=== PATIENT | female | born 1930 | race Caucasian/White ===

== ENCOUNTER 2019-09-01 13:32 | Inpatient (IN) | payer MEDICARE, OTHER ==
[~2019-09-01] VITALS: Ht 165.1 cm; Wt 73.5 kg
--- NOTE | 2019-09-01 13:44 | NUR ---
christen. report receieved from [facility]. pt c/o flu like symptoms x 6 days. sob started today. pt's aox4. resps even and unlabored. sinus tachy rate 110's on doctor of medicine at this time. all monitors in place. call light within reach. denies n/v/d.
--- NOTE | 2019-09-01 14:05 | NUR ---
edmd at bedside to evaluate at this time.
[2019-09-01] MEDS ORDERED: methylPREDNISolone SOD SUCC 125 MG/2 ML ONE (14:27)
[2019-09-01] MEDS ORDERED: SODIUM CHLORIDE 0.9% 1,000ML IVBOLUS ONE ×3 (14:30→17:00)
[2019-09-01] MEDS ORDERED: ALBUTEROL SULFATE 2.5 MG/3 ML NPPB ONE (14:30)
--- NOTE | 2019-09-01 14:31 | NUR ---
pt states " i can't pee now." pt awares of ua.
--- NOTE | 2019-09-01 14:34 | NUR ---
pt medicated per emar. pt tolerated well. ns infusing at this time.
[2019-09-01] MEDS ORDERED: ALBUTEROL SULFATE 2.5 MG/3 ML ONE (14:39)
[2019-09-01] MEDS ORDERED: HYDR12.517 PO (14:42)
[2019-09-01] MEDS ORDERED: LOVA10TA PO (14:43)
[2019-09-01] MEDS ORDERED: LISI-170 PO (14:43)
--- NOTE | 2019-09-01 14:47 | NUR ---
rt at bedside at this time.
[2019-09-01 14:56] LABS: RAPID INFLUENZA A Negative (Negative); RAPID INFLUENZA B Negative (Negative)
[2019-09-01 14:59] LABS: BASOPHILS # (AUTO) 0.04 x10^3/uL (0-0.1); BASOPHILS % (AUTO) 0 % (0-1); EOSINOPHILS % (AUTO) 0 % (1-7); LYMPHOCYTES # (AUTO) 1.71 x10^3/uL (1-3.4); LYMPHOCYTES % (AUTO) 14 % (22-44); MD NO; MEAN CORPUSCULAR HEMOGLOBIN 33.6 pg (27.0-34.8); MEAN CORPUSCULAR HGB CONC 32.9 g/dL (32.4-35.8); MEAN CORPUSCULAR VOLUME 102.2 fL (80-100); MEAN PLATELET VOLUME 10.2 fL (7.4-10.4); MONOCYTES # (AUTO) 1.12 x10^3/uL (0.2-0.8); MONOCYTES % (AUTO) 9 % (2-9); NEUTROPHILS # (AUTO) 9.19 x10^3/uL (1.8-6.8); NEUTROPHILS % (AUTO) 76 % (42-75); PLATELET COUNT 178 x10^3/uL (130-400); RED BLOOD COUNT 5.08 x10^6/uL (3.82-5.3); RED CELL DISTRIBUTION WIDTH 14.1 % (9.6-15.2)
[2019-09-01] MEDS ORDERED: methylPREDNISolone SOD SUCC 125 MG/2 ML IV ONE (15:00)
[2019-09-01 15:10] LABS: ALBUMIN 2.7 g/dL (3.4-5.0); ANION GAP 8 mmol/L (5-15); CALCIUM 8.7 mg/dL (8.5-10.1); CHLORIDE 99 mmol/L (98-107)
--- NOTE | 2019-09-01 15:25 | NUR ---
bedside comode at bedside at this time. pt states "i'm gonna try now."
[2019-09-01] MEDS ORDERED: SODIUM CHLORIDE FLUSH 10ML SYR IVF ONE (15:30)
--- NOTE | 2019-09-01 15:43 | NUR ---
ua sent at this time.
--- NOTE | 2019-09-01 15:43 | NUR ---
BEDSIDE REPORT FROM MARISSA AVERY, PT MOVED TO T3. AWAITING BED ASSIGNMENT. 2ND LITER IVF STARTED. BC DRAWN
--- NOTE | 2019-09-01 15:44 | NUR ---
report given to santo anthony.
[2019-09-01] MEDS ORDERED: MAGNESIUM SULFATE PMX 2GM/50ML 50 ML ONE (16:16)
[2019-09-01 16:17] LABS: MICROSCOPIC INDICATED
[2019-09-01 16:22] LABS: CULTURE INDICATED? YES
[2019-09-01] MEDS ORDERED: MAGNESIUM SULFATE PMX 2GM/50ML 50 ML IVPB ONE (16:30)
[2019-09-01] MEDS ORDERED: CEFTRIAXONE PMX 1GM/50ML 50 ML ONE (16:58)
[2019-09-01] MEDS: CEFTRIAXONE PMX 1GM/50ML 50 ML IV SCH (16:59)
[2019-09-01] MEDS ORDERED: CEFTRIAXONE PMX 1GM/50ML 50 ML IVPB ONE (17:00)
[2019-09-01] MEDS ORDERED: ONDANSETRON ODT 4 MG PO PRN (17:00)
[2019-09-01] MEDS ORDERED: ACETAMINOPHEN 325 MG TABLET PO PRN (17:00)
[2019-09-01] MEDS ORDERED: ONDANSETRON 2MG/ML, 2ML IVPush PRN (17:00)
[2019-09-01] MEDS ORDERED: SODIUM CHLORIDE 0.9% 1,000 ML IV ONE (17:00)
--- NOTE | 2019-09-01 17:12 | NUR ---
Report to GENA Ferrera, pt moved to ED room 23 from tr03 via erich bermudez in bed, NAD, no needs at this time, call light in reach, family member at bedside.
--- NOTE | 2019-09-01 17:12 | NUR ---
Report recieved. pt transfered via [facility].
--- NOTE | 2019-09-01 17:31 | NUR ---
Requested diet tray for pt. Water provided.
[2019-09-01] MEDS ORDERED: SODIUM CHLORIDE FLUSH 10ML SYR IVF PRN (18:00)
--- NOTE | 2019-09-01 18:05 | NUR ---
Report given to Taylor. pt to transfer to med/tele. Updated pt and pts spouse.
[2019-09-01 18:39] VITALS: BP 162/73
[2019-09-01] MEDS: SODIUM CHLORIDE 0.9% 1,000 ML IV SCH (18:51)
[2019-09-01] MEDS: CARVEDILOL 3.125 MG TABLET PO SCH (18:52)
[2019-09-01] MEDS ORDERED: ALBUTEROL SULFATE 2.5 MG/3 ML NPPB PRN (19:00)
[2019-09-01] MEDS ORDERED: ENOXAPARIN 40 MG/0.4 ML SQ SCH (19:30)
[2019-09-01 19:41] VITALS: BP 136/77
[2019-09-01] MEDS: SENNA/DOCUSATE TABLET PO SCH (21:16)
[2019-09-01] MEDS: LOVASTATIN 10 MG TABLET PO SCH (21:16)
[2019-09-02 00:01] VITALS: BP 136/87
[2019-09-02 05:45] VITALS: BP 162/98
[2019-09-02] MEDS: CARVEDILOL 3.125 MG TABLET PO SCH ×2 (05:49→17:17)
[2019-09-02 06:34] LABS: BASOPHILS # (AUTO) 0.02 x10^3/uL (0-0.1); BASOPHILS % (AUTO) 0 % (0-1); EOSINOPHILS # (AUTO) 0.03 x10^3/uL (0-0.4); EOSINOPHILS % (AUTO) 0 % (1-7); LYMPHOCYTES # (AUTO) 0.83 x10^3/uL (1-3.4); LYMPHOCYTES % (AUTO) 8 % (22-44); MD NO; MEAN CORPUSCULAR HEMOGLOBIN 33.9 pg (27.0-34.8); MEAN CORPUSCULAR HGB CONC 33.3 g/dL (32.4-35.8); MEAN CORPUSCULAR VOLUME 101.9 fL (80-100); MEAN PLATELET VOLUME 9.9 fL (7.4-10.4); MONOCYTES # (AUTO) 0.38 x10^3/uL (0.2-0.8); MONOCYTES % (AUTO) 4 % (2-9); NEUTROPHILS # (AUTO) 9.19 x10^3/uL (1.8-6.8); NEUTROPHILS % (AUTO) 88 % (42-75); PLATELET COUNT 181 x10^3/uL (130-400); RED BLOOD COUNT 4.67 x10^6/uL (3.82-5.3); RED CELL DISTRIBUTION WIDTH 14.6 % (9.6-15.2)
[2019-09-02 06:44] LABS: ANION GAP 8 mmol/L (5-15); CHLORIDE 105 mmol/L (98-107); CREATININE 0.82 mg/dL (0.55-1.02)
[2019-09-02 07:08] VITALS: BP 142/93
[2019-09-02] MEDS: LISINOPRIL 20 MG TABLET PO SCH (09:02)
[2019-09-02] MEDS ORDERED: BISACODYL 10 MG SUPP PR ONE (11:00)
[2019-09-02] MEDS ORDERED: MAGNESIUM CITRATE 300ML ORAL SOL PO ONE (12:00)
[2019-09-02 13:24] LABS: TROPONIN I 0.156 ng/mL (0.000-0.045)
[2019-09-02] MEDS: INSULIN LISPRO 100 UNITS/ML, PEN SQ-INSULIN SCH ×3 (13:31→20:11)
[2019-09-02] MEDS: SODIUM CHLORIDE 0.9% 1,000 ML IV SCH (13:31)
[2019-09-02 14:11] VITALS: BP 162/96
[2019-09-02] MEDS: CEFTRIAXONE PMX 1GM/50ML 50 ML IV SCH (17:16)
[2019-09-02 20:05] VITALS: BP 157/92
[2019-09-02] MEDS: LOVASTATIN 10 MG TABLET PO SCH (20:10)
[2019-09-02] MEDS: APIXABAN 5 MG TABLET PO SCH (20:10)
[2019-09-02] MEDS: SENNA/DOCUSATE TABLET PO SCH (20:10)
[2019-09-03 02:50] VITALS: BP 145/72
[2019-09-03 05:58] VITALS: BP 134/74
[2019-09-03] MEDS: CARVEDILOL 3.125 MG TABLET PO SCH ×2 (05:59→18:02)
[2019-09-03 07:31] LABS: MEAN CORPUSCULAR HEMOGLOBIN 33.9 pg (27.0-34.8); MEAN CORPUSCULAR HGB CONC 32.9 g/dL (32.4-35.8); MEAN CORPUSCULAR VOLUME 103.1 fL (80-100); MEAN PLATELET VOLUME 9.4 fL (7.4-10.4); PLATELET COUNT 176 x10^3/uL (130-400); RED CELL DISTRIBUTION WIDTH 14.3 % (9.6-15.2)
[2019-09-03 07:47] LABS: ANION GAP 5 mmol/L (5-15); CALCIUM 8.1 mg/dL (8.5-10.1); CHLORIDE 107 mmol/L (98-107)
[2019-09-03 07:53] LABS: CREATININE 0.79 mg/dL (0.55-1.02); TROPONIN I 0.105 ng/mL (0.000-0.045)
[2019-09-03 08:17] LABS: BASOPHILS # (AUTO) 0.06 x10^3/uL (0-0.1); BASOPHILS % (AUTO) 0 % (0-1); EOSINOPHILS % (AUTO) 0 % (1-7); LYMPHOCYTES # (AUTO) 1.43 x10^3/uL (1-3.4); LYMPHOCYTES % (AUTO) 10 % (22-44); MD SCAN; MONOCYTES # (AUTO) 1.08 x10^3/uL (0.2-0.8); MONOCYTES % (AUTO) 7 % (2-9); NEUTROPHILS # (AUTO) 12.35 x10^3/uL (1.8-6.8); NEUTROPHILS % (AUTO) 83 % (42-75)
[2019-09-03] MEDS: INSULIN LISPRO 100 UNITS/ML, PEN SQ-INSULIN SCH ×4 (08:24→20:02)
[2019-09-03 08:48] VITALS: BP 156/72
[2019-09-03] MEDS ORDERED: FUROSEMIDE 40 MG/4 ML IV SCH (09:30)
[2019-09-03] MEDS: APIXABAN 5 MG TABLET PO SCH ×2 (09:49→20:02)
[2019-09-03] MEDS: DOXYCYCLINE 100MG CAP PO SCH ×2 (09:49→20:01)
[2019-09-03] MEDS: LISINOPRIL 20 MG TABLET PO SCH (09:50)
[2019-09-03 14:46] VITALS: BP 150/82
[2019-09-03] MEDS ORDERED: OMNIPAQUE 350 MG/ML, 100ML BOTTLE ONE (15:49)
[2019-09-03] MEDS: CEFTRIAXONE PMX 1GM/50ML 50 ML IV SCH (18:01)
[2019-09-03 19:29] VITALS: BP 168/78
[2019-09-03] MEDS: SENNA/DOCUSATE TABLET PO SCH (20:01)
[2019-09-03] MEDS: LOVASTATIN 10 MG TABLET PO SCH (20:01)
[2019-09-03 21:32] VITALS: BP 134/73
[2019-09-04 00:20] VITALS: BP 159/72
[2019-09-04 05:46] VITALS: BP 160/72
[2019-09-04] MEDS: CARVEDILOL 3.125 MG TABLET PO SCH (05:47)
[2019-09-04 06:49] VITALS: BP 154/83
[2019-09-04] MEDS: INSULIN LISPRO 100 UNITS/ML, PEN SQ-INSULIN SCH ×4 (07:31→20:56)
[2019-09-04 07:37] LABS: ANION GAP 7 mmol/L (5-15); CHLORIDE 102 mmol/L (98-107); CREATININE 0.71 mg/dL (0.55-1.02)
[2019-09-04 07:49] LABS: BASOPHILS # (AUTO) 0.28 x10^3/uL (0-0.1); BASOPHILS % (AUTO) 3 % (0-1); EOSINOPHILS # (AUTO) 0.05 x10^3/uL (0-0.4); EOSINOPHILS % (AUTO) 0 % (1-7); HEMOGRAM NOTE RECHECKED; LYMPHOCYTES # (AUTO) 1.56 x10^3/uL (1-3.4); LYMPHOCYTES % (AUTO) 14 % (22-44); MD NO; MEAN CORPUSCULAR HEMOGLOBIN 33.7 pg (27.0-34.8); MEAN CORPUSCULAR VOLUME 102.1 fL (80-100); MEAN PLATELET VOLUME 9.5 fL (7.4-10.4); MONOCYTES # (AUTO) 0.73 x10^3/uL (0.2-0.8); MONOCYTES % (AUTO) 6 % (2-9); NEUTROPHILS # (AUTO) 8.71 x10^3/uL (1.8-6.8); NEUTROPHILS % (AUTO) 77 % (42-75); PLATELET COUNT 171 x10^3/uL (130-400); RED BLOOD COUNT 4.74 x10^6/uL (3.82-5.3); RED CELL DISTRIBUTION WIDTH 14.2 % (9.6-15.2)
[2019-09-04] MEDS: DOXYCYCLINE 100MG CAP PO SCH ×2 (08:52→20:57)
[2019-09-04] MEDS: APIXABAN 5 MG TABLET PO SCH ×2 (08:52→20:57)
[2019-09-04] MEDS: FUROSEMIDE 40 MG/4 ML IV SCH ×2 (08:53→20:57)
[2019-09-04] MEDS: LISINOPRIL 20 MG TABLET PO SCH (08:53)
[2019-09-04 11:04] VITALS: BP 157/70
[2019-09-04] MEDS ORDERED: POTASSIUM CHLORIDE 20 MEQ TAB.ER.PRT PO ONE (11:30)
[2019-09-04 14:27] VITALS: BP 146/86
[2019-09-04] MEDS: CEFTRIAXONE PMX 1GM/50ML 50 ML IV SCH (17:20)
[2019-09-04] MEDS: CARVEDILOL 6.25 MG TABLET PO SCH (17:20)
[2019-09-04 19:48] VITALS: BP 133/70
[2019-09-04] MEDS: SENNA/DOCUSATE TABLET PO SCH (20:57)
[2019-09-04] MEDS: LOVASTATIN 10 MG TABLET PO SCH (20:57)
[2019-09-05 02:43] VITALS: BP 137/85
[2019-09-05 05:46] VITALS: BP 155/95
[2019-09-05] MEDS: CARVEDILOL 6.25 MG TABLET PO SCH ×2 (05:47→17:42)
[2019-09-05 06:36] LABS: CHLORIDE 97 mmol/L (98-107)
[2019-09-05 06:46] LABS: BASOPHILS # (AUTO) 0.03 x10^3/uL (0-0.1); BASOPHILS % (AUTO) 0 % (0-1); EOSINOPHILS # (AUTO) 0.05 x10^3/uL (0-0.4); EOSINOPHILS % (AUTO) 0 % (1-7); LYMPHOCYTES # (AUTO) 1.57 x10^3/uL (1-3.4); LYMPHOCYTES % (AUTO) 14 % (22-44); MD SCAN; MEAN CORPUSCULAR HEMOGLOBIN 33.7 pg (27.0-34.8); MEAN PLATELET VOLUME 9.8 fL (7.4-10.4); MONOCYTES # (AUTO) 0.59 x10^3/uL (0.2-0.8); MONOCYTES % (AUTO) 5 % (2-9); NEUTROPHILS # (AUTO) 8.76 x10^3/uL (1.8-6.8); NEUTROPHILS % (AUTO) 80 % (42-75); PLATELET COUNT 173 x10^3/uL (130-400); RED BLOOD COUNT 5.03 x10^6/uL (3.82-5.3); RED CELL DISTRIBUTION WIDTH 14.4 % (9.6-15.2)
[2019-09-05] MEDS: INSULIN LISPRO 100 UNITS/ML, PEN SQ-INSULIN SCH ×4 (07:00→22:35)
[2019-09-05 07:08] VITALS: BP 154/86
[2019-09-05 07:53] LABS: ANION GAP 7 mmol/L (5-15); CALCIUM 8.8 mg/dL (8.5-10.1); CREATININE 0.76 mg/dL (0.55-1.02)
[2019-09-05] MEDS: DOXYCYCLINE 100MG CAP PO SCH ×2 (08:14→22:34)
[2019-09-05] MEDS: APIXABAN 5 MG TABLET PO SCH ×2 (08:14→22:34)
[2019-09-05] MEDS: FUROSEMIDE 40 MG/4 ML IV SCH ×2 (08:14→22:34)
[2019-09-05] MEDS: LISINOPRIL 20 MG TABLET PO SCH (08:14)
[2019-09-05] MEDS ORDERED: LISINOPRIL 10 MG TABLET PO SCH (09:00)
[2019-09-05 14:00] VITALS: BP 113/63
[2019-09-05] MEDS: CEFTRIAXONE PMX 1GM/50ML 50 ML IV SCH (16:45)
[2019-09-05 20:00] VITALS: BP 122/65
[2019-09-05] MEDS: SENNA/DOCUSATE TABLET PO SCH (22:34)
[2019-09-05] MEDS: LOVASTATIN 10 MG TABLET PO SCH (22:34)
[2019-09-06 02:03] VITALS: BP 124/71
[2019-09-06 06:10] LABS: BASOPHILS # (AUTO) 0.06 x10^3/uL (0-0.1); BASOPHILS % (AUTO) 1 % (0-1); EOSINOPHILS # (AUTO) 0.13 x10^3/uL (0-0.4); EOSINOPHILS % (AUTO) 1 % (1-7); LYMPHOCYTES # (AUTO) 1.75 x10^3/uL (1-3.4); LYMPHOCYTES % (AUTO) 17 % (22-44); MD NO; MEAN CORPUSCULAR HEMOGLOBIN 33.5 pg (27.0-34.8); MEAN CORPUSCULAR HGB CONC 32.9 g/dL (32.4-35.8); MEAN CORPUSCULAR VOLUME 101.7 fL (80-100); MEAN PLATELET VOLUME 9.7 fL (7.4-10.4); MONOCYTES # (AUTO) 0.75 x10^3/uL (0.2-0.8); MONOCYTES % (AUTO) 7 % (2-9); NEUTROPHILS # (AUTO) 7.39 x10^3/uL (1.8-6.8); NEUTROPHILS % (AUTO) 73 % (42-75); PLATELET COUNT 180 x10^3/uL (130-400); RED BLOOD COUNT 5.26 x10^6/uL (3.82-5.3); RED CELL DISTRIBUTION WIDTH 14.1 % (9.6-15.2)
[2019-09-06 06:23] LABS: ANION GAP 4 mmol/L (5-15); CHLORIDE 94 mmol/L (98-107); CREATININE 0.92 mg/dL (0.55-1.02)
[2019-09-06 06:31] VITALS: BP 132/76
[2019-09-06] MEDS: CARVEDILOL 6.25 MG TABLET PO SCH ×2 (06:31→16:49)
[2019-09-06] MEDS ORDERED: POTASSIUM CHLORIDE 40 MEQ in SODIUM CHLORIDE 0.9% 500 ML IV ONE (07:00)
[2019-09-06] MEDS: INSULIN LISPRO 100 UNITS/ML, PEN SQ-INSULIN SCH ×4 (07:00→21:00)
[2019-09-06 08:01] VITALS: BP 119/74
[2019-09-06] MEDS: DOXYCYCLINE 100MG CAP PO SCH ×2 (08:12→20:36)
[2019-09-06] MEDS: APIXABAN 5 MG TABLET PO SCH ×2 (08:12→20:36)
[2019-09-06] MEDS: POTASSIUM CHLORIDE 20 MEQ TAB.ER.PRT PO SCH ×2 (08:12→16:49)
[2019-09-06] MEDS: FUROSEMIDE 20 MG TABLET PO SCH (08:13)
[2019-09-06] MEDS: LISINOPRIL 20 MG TABLET PO SCH (08:13)
[2019-09-06 13:07] VITALS: BP 131/60
[2019-09-06 14:37] LABS: ANION GAP 4 mmol/L (5-15); CALCIUM 9.1 mg/dL (8.5-10.1); CHLORIDE 96 mmol/L (98-107); CREATININE 1.11 mg/dL (0.55-1.02)
[2019-09-06 18:39] VITALS: BP 116/64
[2019-09-06] MEDS: LOVASTATIN 10 MG TABLET PO SCH (20:36)
[2019-09-06] MEDS: SENNA/DOCUSATE TABLET PO SCH (20:36)
[2019-09-07 01:44] VITALS: BP 127/76
[2019-09-07 04:17] LABS: ANION GAP 5 mmol/L (5-15); CALCIUM 8.6 mg/dL (8.5-10.1); CHLORIDE 101 mmol/L (98-107)
[2019-09-07 04:19] LABS: CREATININE 0.94 mg/dL (0.55-1.02)
[2019-09-07 04:21] LABS: BASOPHILS # (AUTO) 0.01 x10^3/uL (0-0.1); BASOPHILS % (AUTO) 0 % (0-1); EOSINOPHILS # (AUTO) 0.13 x10^3/uL (0-0.4); EOSINOPHILS % (AUTO) 1 % (1-7); LYMPHOCYTES # (AUTO) 1.84 x10^3/uL (1-3.4); LYMPHOCYTES % (AUTO) 16 % (22-44); MD NO; MEAN CORPUSCULAR HEMOGLOBIN 33.7 pg (27.0-34.8); MEAN CORPUSCULAR HGB CONC 32.9 g/dL (32.4-35.8); MEAN CORPUSCULAR VOLUME 102.4 fL (80-100); MEAN PLATELET VOLUME 9.7 fL (7.4-10.4); MONOCYTES # (AUTO) 0.63 x10^3/uL (0.2-0.8); MONOCYTES % (AUTO) 6 % (2-9); NEUTROPHILS # (AUTO) 8.73 x10^3/uL (1.8-6.8); NEUTROPHILS % (AUTO) 77 % (42-75); PLATELET COUNT 188 x10^3/uL (130-400); RED BLOOD COUNT 5.14 x10^6/uL (3.82-5.3); RED CELL DISTRIBUTION WIDTH 13.9 % (9.6-15.2)
[2019-09-07] MEDS: CARVEDILOL 6.25 MG TABLET PO SCH (06:17)
[2019-09-07 06:18] VITALS: BP 133/77
[2019-09-07] MEDS: INSULIN LISPRO 100 UNITS/ML, PEN SQ-INSULIN SCH ×2 (07:00→11:47)
[2019-09-07] MEDS ORDERED: DOXYCYCLINE 100MG TABLET ONE (08:06)
[2019-09-07] MEDS: FUROSEMIDE 20 MG TABLET PO SCH (08:25)
[2019-09-07] MEDS: APIXABAN 5 MG TABLET PO SCH (08:25)
[2019-09-07] MEDS: POTASSIUM CHLORIDE 20 MEQ TAB.ER.PRT PO SCH (08:26)
[2019-09-07] MEDS: LISINOPRIL 20 MG TABLET PO SCH (08:26)
[2019-09-07] MEDS: DOXYCYCLINE 100MG CAP PO SCH (08:26)
[2019-09-07 08:33] VITALS: BP 113/52
[2019-09-07] MEDS ORDERED: FURO20TA3 PO (12:21)
[2019-09-07] MEDS ORDERED: CARV12.52 PO (12:21)
[2019-09-07] MEDS ORDERED: DOXY100C2 PO (12:21)
[2019-09-07] MEDS ORDERED: APIX5TAB PO (12:21)
[2019-09-07] MEDS ORDERED: POTA20TA6 PO (12:22)
[2019-09-07 12:27] VITALS: BP 136/86
[2019-09-07] MEDS ORDERED: CARVEDILOL 12.5 MG TABLET PO SCH (18:00)
== END 2019-09-07 14:07 | DRG 871 ==
LOC: ED 16:36 → EDIP 16:42 → 4WST 18:26
PROVIDERS: ADMIT Internal Medicine; ATTEND Family Medicine
DX: A41.9 Sepsis, unspecified organism (principal); J18.9 Pneumonia, unspecified organism; I21.A1 Myocardial infarction type 2; I50.21 Acute systolic (congestive) heart failure; J96.01 Acute respiratory failure with hypoxia; E87.2 Acidosis; D68.69 Other thrombophilia; E87.1 Hypo-osmolality and hyponatremia; I47.2 Ventricular tachycardia; I48.20 Chronic atrial fibrillation, unspecified; D75.1 Secondary polycythemia; I08.3 Combined rheumatic disorders of mitral, aortic and tricuspid valves; I11.0 Hypertensive heart disease with heart failure; J98.01 Acute bronchospasm; E11.65 Type 2 diabetes mellitus with hyperglycemia; K59.00 Constipation, unspecified; R65.20 Severe sepsis without septic shock; Z85.3 Personal history of malignant neoplasm of breast; Z85.43 Personal history of malignant neoplasm of ovary; Z87.01 Personal history of pneumonia (recurrent); Z90.710 Acquired absence of both cervix and uterus; Z79.899 Other long term (current) drug therapy; Z90.10 Acquired absence of unspecified breast and nipple
CPT/HCPCS: 36415; 71045; 71275; 80048; 81001; 82040; 82607; 82962; 83036; 83605; 83735; 83880; 84145; 84443; 84484; 85025; 85379; 87040; 87086; 87400; 93005; 93306; 94640; 96360; G0378; J0696; J1650; J1940; J3480; J7613; Q9967; J1815; J2930; J3475; J7030; J7040